=== PATIENT | female | born 1960 | race Caucasian/White ===

== ENCOUNTER → 2017-09-23 | Outpatient (CLI) | payer MEDICARE, OTHER ==
[~2017-09-23] MED LIST: BECL8.7A5 IH; CLON.5 PO; DSS100 PO; ESCI20TA PO; HYD25 PO; HYDR8TAB2 PO; LEVO88TA4 PO; MONT10TA21 PO; MORP15TA70 PO; OMEP20 PO; SIMV-260 PO; TIOT185 IH
== END | disposition home or self-care (01) ==
LOC: RADMN 08:58
PROVIDERS: ATTEND Nurse Practitioner
DX: M48.02 Spinal stenosis, cervical region (principal); M25.78 Osteophyte, vertebrae
CPT/HCPCS: 72141

== ENCOUNTER → 2017-12-06 | Outpatient (CLI) | payer MEDICARE, OTHER ==
[~2017-12-06] VITALS: Ht 154.9 cm; Wt 80.0 kg
[~2017-12-06] MED LIST changes: +ALBU8HFA IH; +BACL10TA PO; +CITA20TA9 PO; +FLUT110HFA IH; +HYDR2 PO; +LISI-660 PO; +NALO12.5 PO; +NYST30CR9 TP; +OMEGA PO; +VITAMIN PO
[2017-12-06 13:30] VITALS: BP 108/71
== END | disposition home or self-care (01) ==
LOC: SRCNTR 13:14
PROVIDERS: ATTEND Internal Medicine
DX: G47.33 Obstructive sleep apnea (adult) (pediatric) (principal); J44.9 Chronic obstructive pulmonary disease, unspecified; I10 Essential (primary) hypertension; E11.9 Type 2 diabetes mellitus without complications; M79.7 Fibromyalgia; F12.90 Cannabis use, unspecified, uncomplicated
CPT/HCPCS: G0463

== ENCOUNTER → 2018-03-11 | Outpatient (CLI) | payer MEDICARE, OTHER ==
[~2018-03-11] MED LIST changes: -BACL10TA PO; -BECL8.7A5 IH; +CITA-106 PO; -CITA20TA9 PO; -CLON.5 PO; -DSS100 PO; -ESCI20TA PO; -HYDR8TAB2 PO; -MORP15TA70 PO; -NALO12.5 PO; -NYST30CR9 TP; -OMEGA PO
== END | disposition home or self-care (01) ==
LOC: RESP 09:31
PROVIDERS: ATTEND Internal Medicine
DX: J44.1 Chronic obstructive pulmonary disease with (acute) exacerbation (principal)
CPT/HCPCS: 94010; 94726; 94727; 94729

== ENCOUNTER → 2019-04-16 | Outpatient (CLI) | payer MEDICARE, OTHER | END | disposition home or self-care (01) | LOC: RADPV 10:14 | PROVIDERS: ATTEND Family Medicine | DX: Z01.818 Encounter for other preprocedural examination (principal); J44.9 Chronic obstructive pulmonary disease, unspecified ==